=== PATIENT | male | born 1965 | race Caucasian/White ===

== ENCOUNTER 2019-04-28 16:45 | Inpatient (IN) | payer OTHER ==
[~2019-04-28] VITALS: Ht 188 cm; Wt 82.6 kg
[~2019-04-28 16:45] MED LIST: METF-440 PO; [UNRECOGNIZED DRUG - REMARK]
--- NOTE | 2019-04-28 16:50 | NUR ---
CAME IN FOR R SIDED ABDOMIAL PAIN R/T LOWER BACK X 5 DAYS. N/V/D X 3 DAYS, TO ER BED 9, HOOKED TO MONITOR, CHANGED TO HOSP GOWN, PROVIDED W WARM BLANKET, AWAITING MD BAI.
--- NOTE | 2019-04-28 16:55 | NUR ---
CAR SEALER DEGRASSE AT BEDSIDE
[2019-04-28] MEDS ORDERED: ONDANSETRON HCL/PF 4 MG/2 ML VIAL IVP ONE (17:00)
[2019-04-28] MEDS ORDERED: MORPHINE SULFATE INJ 2 MG/ML DISP.SYRIN IV ONE (17:00)
[2019-04-28] MEDS ORDERED: IV NS 0.9% 1,000 ML BAG IV ONE (17:00)
[2019-04-28] MEDS ORDERED: MORPHINE SULFATE INJ 4 MG/ML DISP.SYRIN ONE (17:07)
[2019-04-28] MEDS ORDERED: ONDANSETRON HCL/PF 4 MG/2 ML VIAL ONE ×2 (17:07→19:49)
[2019-04-28 17:08] LABS: BASOPHILS % (AUTO) 0.4 % (0.0-2.0); EOSINOPHILS % (AUTO) 1.8 % (0.0-6.0); HEMATOCRIT 32 % (39-51); HEMOGLOBIN 10.3 g/dL (13.5-17.5); LYMPHOCYTES # (AUTO) 0.7 /CMM (0.8-4.8); LYMPHOCYTES % (AUTO) 5.9 % (20.0-44.0); MEAN CORPUSCULAR HGB CONC 32 g/dl (31.0-36.0); MEAN CORPUSCULAR VOLUME 83 fL (80-96); MONOCYTES # (AUTO) 0.9 /CMM (0.1-1.30); NEUTROPHILS # (AUTO) 9.9 /CMM (1.8-8.9); NEUTROPHILS % (AUTO) 83.9 % (43.0-81.0); PLATELET COUNT (AUTO) 364 /CMM (150-450); RED BLOOD CELL COUNT(AUTO) 3.86 MIL/uL (4.5-6.0); WHITE BLOOD COUNT (AUTO) 11.8 K/uL (4.3-11.0)
[2019-04-28 17:24] LABS: CALCIUM, SERUM 9.2 mg/dL (8.5-10.1); CREATININE 1.6 mg/dL (0.6-1.3); POTASSIUM 4.8 mmol/L (3.5-5.1)
[2019-04-28 17:35] LABS: BILIRUBIN,DIRECT 0.1 mg/dL (0.0-0.2); BILIRUBIN,TOTAL 0.2 mg/dL (0.2-1.0)
[2019-04-28 17:36] LABS: ALBUMIN 3.3 g/dL (3.4-5.0); TOTAL PROTEIN, SERUM 8.1 g/dL (6.4-8.2)
[2019-04-28] MEDS ORDERED: IOHEXOL-300 100 ML VIAL IV ONE (17:45)
[2019-04-28] MEDS ORDERED: HYDROMORPHONE 1 MG/1 ML DISP.SYRIN ONE ×3 (18:36→23:19)
[2019-04-28] MEDS ORDERED: HYDROMORPHONE 1 MG/1 ML DISP.SYRIN IV ONE ×2 (19:00→19:30)
--- NOTE | 2019-04-28 19:12 | NUR ---
[facility] [phone]
--- NOTE | 2019-04-28 19:14 | NUR ---
REPORT GIVEN TO EWDIGE ALANIZ FOR ED
--- NOTE | 2019-04-28 19:17 | NUR ---
PT RECEIVED FROM KATTY ULRICH FOR ED
[2019-04-28] MEDS ORDERED: KETOROLAC TROMETHAMINE INJ 30 MG/ML VIAL ONE (19:49)
[2019-04-28 19:50] LABS: APPEARANCE,URINE Clear (CLEAR); BILIRUBIN,URINE Negative (NEGATIVE); BLOOD, URINE Trace-lysed Ery/uL (NEGATIVE); COLOR,URINE Yellow (YELLOW); KETONES,URINE Negative (NEGATIVE); LEUKOCYTE ESTERASE ,URINE Negative (NEGATIVE); NITRITE, URINE Negative (NEGATIVE); PROTEIN,URINE Negative (NEGATIVE); UGLUCOSE Negative (NEGATIVE); UROBILINOGEN,URINE 0.2 EU/dL (0.2)
[2019-04-28] MEDS ORDERED: HYDROMORPHONE INJ 0.5 MG/0.5 ML SYRINGE IV PRN (20:00)
[2019-04-28] MEDS ORDERED: Z GUARD REMEDY 2 OZ OINT TP PRN (20:00)
[2019-04-28] MEDS ORDERED: MAG HYDROX/AL HYDROX/SIMETH 30 ML UDC PO PRN (20:00)
[2019-04-28] MEDS ORDERED: ONDANSETRON HCL/PF 4 MG/2 ML VIAL IV ONE (20:00)
[2019-04-28] MEDS ORDERED: KETOROLAC TROMETHAMINE INJ 30 MG/ML VIAL IV ONE (20:00)
[2019-04-28] MEDS ORDERED: MAGNESIUM HYDROXIDE 30 ML UDC PO PRN (20:00)
[2019-04-28] MEDS ORDERED: ZOLPIDEM TARTRATE 5 MG TABLET PO PRN (20:00)
[2019-04-28] MEDS ORDERED: ACETAMINOPHEN 325 MG TABLET PO PRN (20:00)
[2019-04-28 20:02] LABS: BACTERIA,URINE Rare /HPF (None Seen); SQUAMOUS EPITHELIAL CELL,UR Few /HPF (None Seen); WBC,URINE 0-2 /HPF (0-3)
[2019-04-28 20:03] LABS: RBC,URINE 0-2 /HPF (0-2)
[2019-04-28] MEDS ORDERED: GEMF600T5 PO (20:44)
[2019-04-28] MEDS ORDERED: LEVO175T2 PO (20:44)
[2019-04-28] MEDS ORDERED: BENA5TAB5 PO (20:44)
--- NOTE | 2019-04-28 20:44 | NUR ---
REPORT GIVEN TO KATTY HOLLAND FOR ED
[2019-04-28 20:55] VITALS: BP 109/61
--- NOTE | 2019-04-28 20:55 | NUR ---
RN OPEN NOTES RECEIVED PATIENT FROM ER VIA [facility]. A/OX4. NO SIGNS OF DISTRESS OR DISCOMFORT. BREATHING EVEN AND UNLABORED. IV ACCESS IN RAC, PATENT AND INTACT, NO SIGNS OF REDNESS OR INFILTRATION. ORIENTED PATIENT TO UNIT AND ROOM. NO SKIN ISSUES NOTED. BED IN LOW LOCKED POSITION WITH SIDE RAILS X2. CALL LIGHT WITHIN REACH. WILL CONTINUE TO MONITOR.
--- NOTE | 2019-04-28 20:58 | NUR ---
PT TRANSPERTED TO UNIT ON [facility] BY EMT W/ PTS AT BEDSIDE. PT IS IN STABLE CONDITION FOR TRANSPORT
[2019-04-28 21:15] VITALS: BP 109/61
[2019-04-28] MEDS ORDERED: CEFTRIAXONE 1 G VIAL ONE (21:41)
[2019-04-28] MEDS: CEFTRIAXONE 1 G in IV D5W 50 ML IV SCH (21:59)
[2019-04-28] MEDS: IV NS 0.9% 1,000 ML IV PRN (22:00)
--- NOTE | 2019-04-28 23:42 | NUR ---
RN NOTES ADMINISTERED DILAUDID 1MG ORDERED FOR RLQ PAIN 1010, AT PATIENT REQUEST. VSS. WILL CONTINUE TO MONITOR.
[2019-04-29] MEDS ORDERED: HYDROMORPHONE 1 MG/1 ML DISP.SYRIN IV PRN
[2019-04-29] MEDS ORDERED: DEXTROSE 50%-WATER 50 ML DISP.SYRIN IV PRN (01:00)
[2019-04-29] MEDS: HYDROMORPHONE 1 MG/1 ML DISP.SYRIN IV PRN ×6 (03:39→23:53)
--- NOTE | 2019-04-29 03:39 | NUR ---
RN NOTES ADMINISTERED DILAUDID 1MG ORDERED FOR RLQ PAIN 12/25, AT PATIENT REQUEST. VSS. WILL CONTINUE TO MONITOR.
[2019-04-29 06:23] LABS: BASOPHILS % (AUTO) 0.4 % (0.0-2.0); EOSINOPHILS % (AUTO) 3.1 % (0.0-6.0); HEMATOCRIT 28 % (39-51); HEMOGLOBIN 9.3 g/dL (13.5-17.5); LYMPHOCYTES % (AUTO) 11.3 % (20.0-44.0); MEAN CORPUSCULAR HGB CONC 34 g/dl (31.0-36.0); MEAN CORPUSCULAR VOLUME 83 fL (80-96); MONOCYTES # (AUTO) 1.2 /CMM (0.1-1.30); MONOCYTES % (AUTO) 13.2 % (2.0-12.0); NEUTROPHILS # (AUTO) 6.4 /CMM (1.8-8.9); PLATELET COUNT (AUTO) 304 /CMM (150-450); RED BLOOD CELL COUNT(AUTO) 3.33 MIL/uL (4.5-6.0)
--- NOTE | 2019-04-29 06:28 | NUR ---
RN NOTES ADMINISTERED DILAUDID 1MG ORDERED FOR RLQ PAIN 12/25, AT PATIENT REQUEST. VSS. WILL CONTINUE TO MONITOR.
[2019-04-29] MEDS: BLOOD SUGAR DIAGNOSTIC 1 EACH STRIP IN SCH ×4 (06:32→21:41)
[2019-04-29 06:33] LABS: CALCIUM, SERUM 8.4 mg/dL (8.5-10.1); CREATININE 1.5 mg/dL (0.6-1.3); MAGNESIUM 1.7 mg/dL (1.8-2.4); PHOSPHORUS 3.8 mg/dL (2.5-4.9); POTASSIUM 4.3 mmol/L (3.5-5.1)
--- NOTE | 2019-04-29 07:04 | NUR ---
RN CLOSING NOTES PATIENT RESTING COMFORTABLY IN BED, EASILY AROUSABLE. A/OX4. NO SIGNS OF DISTRESS OR DISCOMFORT. BREATHING EVEN AND UNLABORED. IV ACCESS IN RAC WITH NS INFUSING, PATENT AND INTACT, NO SIGNS OF REDNESS OR INFILTRATION. ALL NEEDS MET. NO SIGNIFICANT CHANGES THROUGH THE NIGHT. BED IN LOW LOCKED POSITION WITH SIDE RAILS X2. CALL LIGHT WITHIN REACH. WILL CONTINUE TO MONITOR.
[2019-04-29 08:00] VITALS: BP 105/55
--- NOTE | 2019-04-29 08:00 | NUR ---
RN NOTES RECEIVED PATIENT IN THE BED A/O X4 MALE WAS COMPLAINING OF ACUTE MEDIAL FLANK PAIN 8/10 PER PAIN SCALE. PATIENT HAS NO ACUTE RESPIRATORY DISTRESS, V/S STABLE, USING BATHROOM, AMBULATORY SELF CARE. PATIENT NPO EXCEPT MEDS, AND ALSO SCHEDULED MRI WITH/WO CONTRAST. CALL LIGHT WITHIN TO REACH. INFUSING NS AT 75 ML/HR ON RIGHT AC AREA INTACT. SAFETY PRECAUTION MAINTAINED ALL THE TIME.
--- NOTE | 2019-04-29 08:37 | NUR ---
RN NOTES ADMINISTERED DILAUDID 1 MG/ML IV PUSH FOR PAIN 9/10 RIGHT FLANK AREA PER PATIENT REQUEST, V/S TAKEN BP-105/55, P-71. KEISHA;L LIGHT WITHIN TO REACH, CONTINUED MONITORING.
[2019-04-29] MEDS ORDERED: Magnesium 1GM/D5W 100ML PREMIX 100 ML IV SCH (09:38)
--- NOTE | 2019-04-29 10:23 | NUR ---
rn notes patient has a claustrophobia of MRI and get one time order per hospitalist Mauro LEGER atiavn 1 mg/ml iv push x1 order taken and carried out.
--- NOTE | 2019-04-29 10:26 | NUR ---
RN NOTES ADMINISTERED ATIVAN 1 MG /ML IV PUSH PER DNP ORDER FOR CLAUSTROPHOBIA OF MRI. V/S STABLE BP 105.55, P-65, CONTINUED MONITORING.
[2019-04-29] MEDS ORDERED: LORAZEPAM INJ 2 MG/ML VIAL IV ONE (10:30)
[2019-04-29] MEDS ORDERED: GADOTERIDOL 279.3 MG/ML VIAL IV ONE (12:08)
--- NOTE | 2019-04-29 12:12 | NUR ---
RN NOTES PATIENT BACK FROM MRI AT THIS TIME, BS-132 MG/DL, INFUSING MAGNESIUM 100ML/ IV AT THIS TIME INTACT. PATIENT WAS COMPLAINING OF PAIN MID ABDOMEN 8/10 PER PAIN SCALE. ADMINISTERED DILAUDID 1 MG/ML IV PUSH , V/S TAKEN BP 99/60, P-72. CALL LIGHT WITHIN TO REACH, CONTINUED MONITORING.
[2019-04-29] MEDS: IV NS 0.9% 1,000 ML IV PRN (14:59)
[2019-04-29 16:00] VITALS: BP 116/80
--- NOTE | 2019-04-29 18:30 | NUR ---
RN NOTES PATIENT IN THE BED BS-158 MG/DL PATIENT REFUSED COVERAGE , PATIENT POOR EATER, , V/S STABLE, FAMILY NEXT TO THE BED. INFUSING NS AT 75 ML/HR ON RIGHT AC AREA INTACT. CALL LIGHT WITHIN TO REACH. ENDORSED ONCOMING NURSE FOLLOW IVONNE OF CARE.
--- NOTE | 2019-04-29 19:25 | NUR ---
RN OPEN NOTES RECEIVED PATIENT AWAKE IN BED WITH FAMILY AT BEDSIDE. A/OX4. NO SIGNS OF DISTRESS OR DISCOMFORT. BREATHING EVEN AND UNLABORED. IV ACCESS IN RAC WITH NS INFUSING, PATENT AND INTACT, NO SIGNS OF REDNESS OR INFILTRATION. STATES PAIN IN RLQ 9/10 WILL ADMINISTER PRN PAIN MEDS. BED IN LOW LOCKED POSITION WITH SIDE RAILS X2. CALL LIGHT WITHIN REACH. WILL CONTINUE TO MONITOR.
[2019-04-29] MEDS: CEFTRIAXONE 1 G in IV D5W 50 ML IV SCH (20:08)
--- NOTE | 2019-04-29 20:09 | NUR ---
RN NOTES ADMINISTERED DILAUDID 1MG ORDERED FOR RLQ PAIN 12/25, AT PATIENT REQUEST. VSS. WILL CONTINUE TO MONITOR.
[2019-04-29 20:31] VITALS: BP 102/54
[2019-04-29] MEDS: HYDROCODONE/APAP 5/325MG 1 EACH TABLET PO PRN (21:41)
--- NOTE | 2019-04-29 23:53 | NUR ---
RN NOTES ADMINISTERED DILAUDID 1MG ORDERED FOR RLQ PAIN 1010, AT PATIENT REQUEST. VSS. WILL CONTINUE TO MONITOR.
[2019-04-30] MEDS: HYDROMORPHONE 1 MG/1 ML DISP.SYRIN IV PRN ×10 (02:14→22:08)
--- NOTE | 2019-04-30 02:14 | NUR ---
RN NOTES ADMINISTERED DILAUDID 1MG ORDERED FOR RLQ PAIN 1010, AT PATIENT REQUEST. VSS. WILL CONTINUE TO MONITOR.
--- NOTE | 2019-04-30 04:21 | NUR ---
RN NOTES ADMINISTERED DILAUDID 1MG ORDERED FOR RLQ PAIN 12/25, AT PATIENT REQUEST. BP 117/59 P77. WILL CONTINUE TO MONITOR.
[2019-04-30] MEDS: IV NS 0.9% 1,000 ML IV PRN ×2 (05:24→20:17)
--- NOTE | 2019-04-30 06:21 | NUR ---
RN NOTES ADMINISTERED DILAUDID 1MG ORDERED FOR RLQ PAIN 11/24, AT PATIENT REQUEST. VSS. WILL CONTINUE TO MONITOR.
[2019-04-30] MEDS: BLOOD SUGAR DIAGNOSTIC 1 EACH STRIP IN SCH ×4 (06:30→22:17)
[2019-04-30] MEDS: INSULIN REGULAR, HUMAN 100 UNIT/ML 3 ML VIAL SQ PRN ×4 (06:31→22:18)
--- NOTE | 2019-04-30 07:05 | NUR ---
RN CLOSING NOTES PATIENT RESTING COMFORTABLY IN BED, EASILY AROUSABLE. A/OX4. NO SIGNS OF DISTRESS OR DISCOMFORT. BREATHING EVEN AND UNLABORED. IV ACCESS IN RAC WITH NS INFUSING, PATENT AND INTACT, NO SIGNS OF REDNESS OR INFILTRATION. ALL NEEDS MET. NO SIGNIFICANT CHANGES THROUGH THE NIGHT. BED IN LOW LOCKED POSITION WITH SIDE RAILS X2. CALL LIGHT WITHIN REACH. WILL ENDORSE TO AM SHIFT FOR ED.
[2019-04-30 07:43] LABS: BASOPHILS % (AUTO) 0.7 % (0.0-2.0); EOSINOPHILS % (AUTO) 5.4 % (0.0-6.0); HEMATOCRIT 27 % (39-51); HEMOGLOBIN 9.1 g/dL (13.5-17.5); LYMPHOCYTES # (AUTO) 1.3 /CMM (0.8-4.8); LYMPHOCYTES % (AUTO) 22.6 % (20.0-44.0); MEAN CORPUSCULAR HGB CONC 34 g/dl (31.0-36.0); MEAN CORPUSCULAR VOLUME 83 fL (80-96); MONOCYTES # (AUTO) 0.8 /CMM (0.1-1.30); MONOCYTES % (AUTO) 12.9 % (2.0-12.0); NEUTROPHILS # (AUTO) 3.5 /CMM (1.8-8.9); NEUTROPHILS % (AUTO) 58.4 % (43.0-81.0); PLATELET COUNT (AUTO) 310 /CMM (150-450); RED BLOOD CELL COUNT(AUTO) 3.26 MIL/uL (4.5-6.0); WHITE BLOOD COUNT (AUTO) 5.9 K/uL (4.3-11.0)
[2019-04-30 08:00] VITALS: BP 103/60
--- NOTE | 2019-04-30 08:00 | NUR ---
RN NOTES RECEIVED PATIENT IN THE BED A/O X4, NO ACUTE RESPIRATORY DISTRESS, V/S STABLE, WAS COMPLAINING OF PAIN RIGHT MEDIAL ABDOMEN 8/10 PER PAIN SCALE. PATIENT AMBULATORY USING BATHROOM, , INFUSING NS AT 75 ML/HR ON RIGHT AC MAMTA INTACT, CALL LIGHT WITHIN TO REACH, SAFETY PRECAUTION MAINTAINED ALL THE TIME.
[2019-04-30 08:07] LABS: CALCIUM, SERUM 8.8 mg/dL (8.5-10.1); CREATININE 1.4 mg/dL (0.6-1.3); MAGNESIUM 2.1 mg/dL (1.8-2.4); POTASSIUM 4.4 mmol/L (3.5-5.1)
[2019-04-30 08:18] LABS: THYROID STIMULATING HORMONE 2.871 uIU/mL (0.358-3.74)
--- NOTE | 2019-04-30 08:49 | NUR ---
RN NOTES ADMINISTERED DILAUDID 1 MG ML IV PUSH FOR PAIN RIGHT MEDIAL FLANK ABDOMINAL AREA, V/S TAKEN60, P-85, BP-103/60, CALL LIGHT WITHIN TO REACH. SAFETY PRECAUTION MAINTAINED ALL THE TIME.
--- NOTE | 2019-04-30 11:01 | NUR ---
RN NOTES ADMINISTERED DILAUDID 1 MG/ML IV PUSH PER PAIN 11/24 PER PATIENT REQUEST, V/S TAKEN BP 125/78, P-85, CONTINUED MONITORING.
--- NOTE | 2019-04-30 12:34 | NUR ---
rn notes bs-190 mg/dl coverage given, patient stable eating lunch at this time, seen hospitalist dr Dixon, new order is urologists consultation, call light within to reach, continued monitoring.
--- NOTE | 2019-04-30 13:11 | NUR ---
RN NOTES ADMINISTERED DILAUDID 1 MG/ML IV PUSH FOR LEFT MIDEAL ABDOMEN 11/24 PER PATIENT REQUEST, V/S WNL. CONTINUED MONITORING.
--- NOTE | 2019-04-30 15:15 | NUR ---
RN NOTES ADMINISTERED DILAUDID 1 MG/ML IV PUSH FOR PAIN RIGHT MED ABDOMEN 8/10 PER PAIN SCALE, V/S TAKEN BP 123/67, P-81, CONTINUED MONITORING.
[2019-04-30 16:00] VITALS: BP 126/74
--- NOTE | 2019-04-30 17:13 | NUR ---
rn notes bs-171 mg/dl coverage given, family next to the bed, continued monitoring.
[2019-04-30] MEDS: ONDANSETRON HCL/PF 4 MG/2 ML VIAL IVP PRN (17:57)
--- NOTE | 2019-04-30 17:58 | NUR ---
RN NOTES ADMINISTERED ZOFRAN 4 MG/ML IV PUSH, AND DILAUDID 1 MG/ML IV PUSH FOR PAIN RIGHT MED AREA OF FLANK AREA 11/24 PER PATIENT REQUEST, V/S TAKEN BP 126/74, P-62, CONTINUED MONITORING.
--- NOTE | 2019-04-30 18:25 | NUR ---
RN NOTES Patient stable, medication were administered for pain, and nausea effective, infusing ns at 75 ml/hr on right ac area intact. family next to the bed, call light within to reach, get call back from urologist Dr. Merrill. MD will see patient tonight. Endorsed oncoming nurse follow plan of care.
[2019-04-30] MEDS: CEFTRIAXONE 1 G in IV D5W 50 ML IV SCH (19:50)
--- NOTE | 2019-04-30 19:55 | NUR ---
RN OPENING NOTES RECEIVED PATIENT FROM KATTY CHRISTOPHER. PATIENT AWAKE IN BED, A/O X 4, FAMILY AT BED SIDE. PATIENT ABLE TO VERBALIZE NEEDS. BREATHING EVEN AND UNLABORED, NO SIGNS OF DISTRESS OR DISCOMFORT. STATES PAIN IS 8/10 PAIN, WILL ADMINISTER PRN PAIN MEDS WHEN ABLE. IV SITE RAC IN PLACE, INTACT, PATENT, NO SIGNS OF INFECTION/INFILTRATION. SAFETY PRECAUTIONS IMPLEMENTED; CALL LIGHT WITHIN REACH, BED LOW, BED LOCKED, BILATERAL UPPER SIDE RAILS UP. WILL CONTINUE TO MONITOR.
[2019-04-30 20:00] VITALS: BP 132/77
[2019-04-30 22:05] VITALS: BP 130/76
[2019-05-01] VITALS (8 sets, daily range): BP systolic 123–140; BP diastolic 63–73
[2019-05-01] MEDS: ONDANSETRON HCL/PF 4 MG/2 ML VIAL IVP PRN (01:12)
[2019-05-01] MEDS: HYDROMORPHONE 1 MG/1 ML DISP.SYRIN IV PRN ×8 (01:12→23:16)
[2019-05-01] MEDS: BLOOD SUGAR DIAGNOSTIC 1 EACH STRIP IN SCH ×4 (06:43→21:15)
[2019-05-01] MEDS: INSULIN REGULAR, HUMAN 100 UNIT/ML 3 ML VIAL SQ PRN ×4 (06:43→21:16)
[2019-05-01 06:45] LABS: CALCIUM, SERUM 8.6 mg/dL (8.5-10.1); CREATININE 1.3 mg/dL (0.6-1.3); POTASSIUM 4.4 mmol/L (3.5-5.1)
[2019-05-01 06:52] LABS: BASOPHILS % (AUTO) 0.6 % (0.0-2.0); EOSINOPHILS % (AUTO) 4.8 % (0.0-6.0); HEMATOCRIT 27 % (39-51); HEMOGLOBIN 9.1 g/dL (13.5-17.5); LYMPHOCYTES # (AUTO) 1.1 /CMM (0.8-4.8); LYMPHOCYTES % (AUTO) 14.8 % (20.0-44.0); MEAN CORPUSCULAR HGB CONC 34 g/dl (31.0-36.0); MEAN CORPUSCULAR VOLUME 81 fL (80-96); MONOCYTES # (AUTO) 0.6 /CMM (0.1-1.30); NEUTROPHILS # (AUTO) 5.1 /CMM (1.8-8.9); NEUTROPHILS % (AUTO) 70.8 % (43.0-81.0); PLATELET COUNT (AUTO) 338 /CMM (150-450); WHITE BLOOD COUNT (AUTO) 7.2 K/uL (4.3-11.0)
--- NOTE | 2019-05-01 06:53 | NUR ---
RN CLOSING NOTES PATIENT IS CURRENTLY AWAKE IN BED. A/O X 4. NO SIGNS OF DISTRESS, NO SHORTNESS OF BREATH NOTED, RESPIRATIONS EVEN AND UNLABORED. NO SIGNS OF FACIAL GRIMACING INDICATING PAIN OR DISCOMFORT AT THIS TIME. IV SITE RAC IN PLACE, INTACT AND PATENT, NO SIGNS OF INFECTION/INFILTRATION, IVF INFUSING. PATIENT KEPT CLEAN, DRY, AND COMFORTABLE. ALL NEEDS MET ON SHIFT. PAIN MANAGED VIA PAIN MEDICATION. ALL DUE MEDS GIVEN ORDERED WITH NO ADVERSE EFFECTS. SAFETY PRECAUTIONS IMPLEMENTED; CALL LIGHT WITHIN REACH, BED LOW, BED LOCKED, BILATERAL UPPER SIDE RAILS UP. WILL ENDORSE TO DAY SHIFT NURSE FOR CONTINUITY OF CARE.
--- NOTE | 2019-05-01 07:30 | NUR ---
RN OPENING NOTE PT WAS RECEIVED IN BED AT LOWEST AND LOCKED POSITION WITH SIDE RAILS UP X2, A/O X4 BREATHING EVEN AND UNLABORED ON RA, NO S/S OF ANY DISTRESS OR PAIN NOTED AT THIS TIME, IV IS PATENT AND INTACT, AMBULATORY, SAFETY PRECAUTIONS IN PLACE, CALL LIGHT IN REACH, WILL MONITOR ACCORDINGLY.
[2019-05-01] MEDS: SOD FERRIC GLUC 125 MG in IV NS 0.9% 100 ML IV SCH (13:56)
[2019-05-01] MEDS: HYDROCODONE/APAP 5/325MG 1 EACH TABLET PO PRN (14:01)
[2019-05-01] MEDS: IV NS 0.9% 1,000 ML IV PRN (14:15)
--- NOTE | 2019-05-01 19:00 | NUR ---
RN medsurg opening notes Received Pt from morning nurse. Pt is alert and orientedX4. Pt is resting in bed comfortably. Respiration is normal. No SOB. No S/S of distress noted. IV sites at RAC #18 is clean, intact and patent. Safety precautions is maintained. Bed at low position, brakes locked, side railsupX3 and call light is within reach. Will continue to monitor.
--- NOTE | 2019-05-01 19:11 | NUR ---
RN CLOSING NOTE PT IN BED AT LOWEST AND LOCKED POSITION WITH SIDE RAILS UP X2, A/O X4 BREATHING EVEN AND UNLABORED ON RA, NO S/S OF ANY DISTRESS OR PAIN, IV IS PATENT AND INTACT, PLAN FOR D/C PLANNING TOMORROW, SAFETY PRECAUTIONS IN PLACE, CALL LIGHT IN REACH, ALL NEEDS ATTENDED TO, WILL ENDORSE TO NIGHT RN FOR ED.
[2019-05-01] MEDS: CEFTRIAXONE 1 G in IV D5W 50 ML IV SCH (19:49)
--- NOTE | 2019-05-01 19:55 | NUR ---
RN medsurg notes Pt is complaining of pain on abdomen and back and requesting dilaudid. Administered Dilaudid 1 mg/1 ml as ordered for pain on abdomen and back per Pt request. VS is stable. Safety precautions is maintained. Instructed to call. Will continue to monitor.
--- NOTE | 2019-05-01 21:17 | NUR ---
RN medsur notes Pt's blood sugar is 129. Hold insulin per MD ordered. Will continue to monitor.
[2019-05-02 01:36] LABS: OCCULT BLOOD STOOL NEGATIVE (NEGATIVE)
[2019-05-02 02:00] VITALS: BP 117/56
[2019-05-02] MEDS: HYDROMORPHONE 1 MG/1 ML DISP.SYRIN IV PRN ×5 (02:11→22:01)
[2019-05-02] MEDS: BLOOD SUGAR DIAGNOSTIC 1 EACH STRIP IN SCH ×4 (06:35→21:08)
[2019-05-02] MEDS: INSULIN REGULAR, HUMAN 100 UNIT/ML 3 ML VIAL SQ PRN ×4 (06:38→21:16)
--- NOTE | 2019-05-02 06:51 | NUR ---
RN medsurg closing notes Pt is resting in bed comfortably. Pt is alert and orientedX4. Respiration is normal. No SOB. No S/S of distress noted. IV sites at RAC# 18 is clean, intact, and patent. VS is stable. Afebrile. Routine meds were given as ordered. Kept Pt clean, dry and comfortable. All needs met and attended. Safety precautions is maintained. Bed at low position, brakes locked,side rails upX3 and call light is within reach. Will endorse to morning nurse for ED.
[2019-05-02 07:28] LABS: BASOPHILS % (AUTO) 0.7 % (0.0-2.0); EOSINOPHILS % (AUTO) 6.9 % (0.0-6.0); HEMATOCRIT 27 % (39-51); HEMOGLOBIN 8.9 g/dL (13.5-17.5); LYMPHOCYTES # (AUTO) 1.3 /CMM (0.8-4.8); LYMPHOCYTES % (AUTO) 21.8 % (20.0-44.0); MEAN CORPUSCULAR HGB CONC 33 g/dl (31.0-36.0); MEAN CORPUSCULAR VOLUME 82 fL (80-96); MONOCYTES # (AUTO) 0.6 /CMM (0.1-1.30); NEUTROPHILS # (AUTO) 3.5 /CMM (1.8-8.9); NEUTROPHILS % (AUTO) 60.6 % (43.0-81.0); PLATELET COUNT (AUTO) 347 /CMM (150-450); RED BLOOD CELL COUNT(AUTO) 3.26 MIL/uL (4.5-6.0); WHITE BLOOD COUNT (AUTO) 5.7 K/uL (4.3-11.0)
[2019-05-02 07:30] VITALS: BP 109/98
[2019-05-02 07:46] LABS: CALCIUM, SERUM 8.4 mg/dL (8.5-10.1); CREATININE 1.5 mg/dL (0.6-1.3); POTASSIUM 4.5 mmol/L (3.5-5.1)
[2019-05-02] MEDS: SOD FERRIC GLUC 125 MG in IV NS 0.9% 100 ML IV SCH (13:53)
[2019-05-02] MEDS ORDERED: HYDROCODONE/APAP 10/325MG 1 EA TABLET PO PRN (14:00)
[2019-05-02] MEDS: DICLOFENAC SODIUM 25 MG TABLET.DR PO SCH ×2 (16:07→21:55)
[2019-05-02] MEDS ORDERED: TRIAMCINOLONE ACETONIDE 0.025% 15 GM TUBE TP PRN (16:30)
--- NOTE | 2019-05-02 19:30 | NUR ---
pt refusing ivf ns despite explaining risks and benefits offered 3 times per pt "im tired of it".
--- NOTE | 2019-05-02 19:32 | NUR ---
MS RN RECEIVED PATIENT IN BED AWAKE A/O X 4, STABLE AND NOT IN DISTRESS. WILL CONTINUE TO MONITOR
[2019-05-02 20:00] VITALS: BP 110/57
[2019-05-02 20:01] VITALS: BP 110/57
[2019-05-02] MEDS: CEFTRIAXONE 1 G in IV D5W 50 ML IV SCH (20:56)
[2019-05-02] MEDS: HYDROCODONE/APAP 5/325MG 1 EACH TABLET PO PRN (21:12)
[2019-05-02] MEDS: ACETYLCYSTEINE 20% ORAL SOLN 6,000 MG/30 ML VIAL PO SCH (21:42)
[2019-05-03] MEDS: HYDROMORPHONE 1 MG/1 ML DISP.SYRIN IV PRN ×4 (01:50→13:41)
--- NOTE | 2019-05-03 06:20 | NUR ---
ASLEEP AND EASILY AWAKEN, SLEPT WELL. MONITORED FOR PAIN. NO S/S OF DISTRESS. NO C/O OF PAIN AT THIS TIME. KEPT CLEAN, DRY AND COMFORTABLE. AM CARE RENDERED, NEEDS ATTENDED AND ANTICIPATED. SAFETY MEASURES AT ALL TIMES. WILL ENDORSE NEXT SHIFT POC.
[2019-05-03] MEDS: BLOOD SUGAR DIAGNOSTIC 1 EACH STRIP IN SCH ×2 (06:54→12:21)
[2019-05-03] MEDS: INSULIN REGULAR, HUMAN 100 UNIT/ML 3 ML VIAL SQ PRN ×2 (06:55→12:17)
[2019-05-03 07:30] VITALS: BP 127/70
--- NOTE | 2019-05-03 07:31 | NUR ---
RN OPENING NOTES Patient received on room air, no sob noted, remains a/o x4, R AC 18 NS @ 75 ml per hour. Bed at the lowest setting, call light within reach, side rails up x2.
[2019-05-03] MEDS: ACETYLCYSTEINE 20% ORAL SOLN 6,000 MG/30 ML VIAL PO SCH (08:26)
[2019-05-03] MEDS: DICLOFENAC SODIUM 25 MG TABLET.DR PO SCH (09:55)
[2019-05-03] MEDS ORDERED: Hydrocodone/Apap 10/325MG PO (10:25)
[2019-05-03] MEDS ORDERED: DICL25TA2 PO (10:25)
--- NOTE | 2019-05-03 13:45 | NUR ---
ornamental plasterer helper notes Patient discharged at this time. no sob noted, patient denies pain at this time. Patient has all the paperwork for discharged and has all posessions with him. Prescription with patient as well and has a copy in his chart. IV line removed with minimal bleeding noted.
== END 2019-05-03 13:57 | disposition home or self-care (01) | DRG 465 ==
LOC: ER 16:48 → MEDSG2 19:48
PROVIDERS: ADMIT Nurse Practitioner Acute Care; ATTEND Family Medicine
DX: N13.30 Unspecified hydronephrosis (principal); N17.0 Acute kidney failure with tubular necrosis; N28.89 Other specified disorders of kidney and ureter; E11.22 Type 2 diabetes mellitus with diabetic chronic kidney disease; D72.829 Elevated white blood cell count, unspecified; D64.9 Anemia, unspecified; E11.65 Type 2 diabetes mellitus with hyperglycemia; I12.9 Hypertensive chronic kidney disease with stage 1 through stage 4 chronic kidney disease, or unspecified chronic kidney disease; N18.9 Chronic kidney disease, unspecified; E44.1 Mild protein-calorie malnutrition; Z68.23 Body mass index [BMI] 23.0-23.9, adult; E03.9 Hypothyroidism, unspecified; R63.4 Abnormal weight loss
CPT/HCPCS: 36415; 71045-TC; 74183-TC; 80048-TC; 80061-TC; 80076-TC; 81000-TC; 82272-TC; 82728-TC; 82962-TC; 83540-TC; 83615-TC; 83690-TC; 83735-TC; 84100-TC; 84443-TC; 85025-TC; 85730-TC; 87040-TC; 87081-TC; A9579; G0378; J0696; J1170; J1815; J1885; J2060; J2270; J2405; J2916; J3475; J7030; J7060; Q9967

== ENCOUNTER 2024-09-28 18:12 | Emergency (ER) | payer OTHER ==
[~2024-09-28] VITALS: Ht 185.4 cm; Wt 81.6 kg
[~2024-09-28 18:12] MED LIST changes: +BENA5TAB5 PO; +DICL25TA2 PO; +GEMF600T90 PO; +Hydrocodone/Apap 10/325MG PO; +LEVO175T2 PO; -[UNRECOGNIZED DRUG - REMARK]
[2024-09-28 19:15] LABS: BASOPHILS % (AUTO) 0.8 % (0.0-2.0); EOSINOPHILS # (AUTO) 0.2 K/uL (0.0-0.7); EOSINOPHILS % (AUTO) 3.9 % (0.0-6.0); HEMATOCRIT 26 % (39-51); HEMOGLOBIN 8.2 g/dL (13.5-17.5); LYMPHOCYTES # (AUTO) 0.8 K/uL (0.8-4.8); LYMPHOCYTES % (AUTO) 15.2 % (20.0-44.0); MEAN CORPUSCULAR HEMOGLOBIN 26 PG (26.0-33.0); MEAN CORPUSCULAR HGB CONC 31 g/dl (31.0-36.0); MEAN CORPUSCULAR VOLUME 82 fL (80-96); MONOCYTES % (AUTO) 21.1 % (2.0-12.0); NEUTROPHILS # (AUTO) 2.9 K/uL (1.8-8.9); PLATELET COUNT (AUTO) 340 K/uL (150-450); RED CELL DISTRIBUTION WIDTH 17.3 % (11.5-15.0)
[2024-09-28] MEDS ORDERED: KETOROLAC TROMETHAMINE 15 MG/ML VIAL ONE (19:21)
[2024-09-28] MEDS ORDERED: FUROSEMIDE 40 MG/4 ML VIAL ONE (19:21)
[2024-09-28] MEDS: KETOROLAC TROMETHAMINE 15 MG/ML VIAL IV ONE (19:38)
[2024-09-28] MEDS: FUROSEMIDE 40 MG/4 ML VIAL IV ONE (19:38)
[2024-09-28 19:42] LABS: EOSINOPHILS % (MANUAL) 2 % (0-4); LYMPHOCYTES % (MANUAL) 16 % (16-48); MONOCYTES % (MANUAL) 8 % (0-11.0); NEUTROPHILS % (MANUAL) 74 (42-76); PLATELET ESTIMATE ADEQUATE
[2024-09-28 19:43] LABS: ANISOCYTOSIS 1+
[2024-09-28 20:01] LABS: CALCIUM, SERUM 8.6 mg/dL (8.5-10.1); CREATININE 1.9 mg/dL (0.6-1.3); POTASSIUM 4.5 mmol/L (3.5-5.1)
[2024-09-28 20:07] LABS: ALBUMIN 2.2 g/dL (3.4-5.0); BILIRUBIN,DIRECT 0.1 mg/dL (0.0-0.2); BILIRUBIN,TOTAL 0.2 mg/dL (0.2-1.0)
[2024-09-28] MEDS ORDERED: ACET-2030 PO (21:06)
[2024-09-28] MEDS ORDERED: FURO-145 PO (21:06)
[2024-09-28] MEDS ORDERED: oxyCODONE/APAP (5/325 MG) 1 UDTAB TABLET ONE (21:27)
[2024-09-28] MEDS: oxyCODONE/APAP (5/325 MG) 1 UDTAB TABLET PO ONE (21:29)
[2024-09-28 23:13] VITALS: BP 118/59; TEMP 98; O2SAT 97
== END 2024-09-28 23:13 | disposition home or self-care (01) ==
LOC: ER 18:15
DX: R60.0 Localized edema (principal); M79.604 Pain in right leg; M79.605 Pain in left leg; I12.9 Hypertensive chronic kidney disease with stage 1 through stage 4 chronic kidney disease, or unspecified chronic kidney disease; E11.22 Type 2 diabetes mellitus with diabetic chronic kidney disease; N18.9 Chronic kidney disease, unspecified; E03.9 Hypothyroidism, unspecified; F17.200 Nicotine dependence, unspecified, uncomplicated; Z79.84 Long term (current) use of oral hypoglycemic drugs; Z79.890 Hormone replacement therapy; Z86.79 Personal history of other diseases of the circulatory system
CPT/HCPCS: 99285; 93970; 96374; 96375; 85025; 80048; 80076; 36415; 83880; J1885; J1938